=== PATIENT | female | born 1975 | race Caucasian/White ===

== ENCOUNTER 2021-03-11 16:59 | Inpatient (IN) | payer OTHER ==
[~2021-03-11] VITALS: Ht 167.6 cm; Wt 148.3 kg
[~2021-03-11 16:59] MED LIST: BACTRIM DS TAB1 EACH PO; BENTYL 20MG TAB20 MG PO; CEFUROXIME500 MG PO; COMBIVENT0.074 GM/I INH; IBU600 MG PO; IBUPROFEN600 MG PO; LODINE CAP 300300 MG PO; NORCO 5-325 TA1 EACH PO; OMNICEF 300 MG300 MG PO; PERCOCET 5/325 T1 EA PO; PHENERGAN 12.12.5 M1 PO; VIBRAMYCIN100 MG PO; ZITHROMAX500 MG PO; ZOFRAN ODT 4 MG4 MG PO
[2021-03-11 17:45] LABS: HEMOGLOBIN 16.2 gm/dl (12.3-15.3); RED BLOOD COUNT 5.24 M/UL (4.00-5.10); WHITE BLOOD COUNT 13.7 K/UL (4.5-11.0)
[2021-03-11 18:02] LABS: BUN/CREATININE RATIO 14 (0-10)
[2021-03-12 04:56] LABS: BUN/CREATININE RATIO 18 (0-10)
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
== END 2021-03-12 10:51 | disposition left against medical advice (07) | DRG 600 ==
LOC: ER1 16:59 → CDU 19:11 → MED SURG 4 23:58
PROVIDERS: Physician Assistant; ADMIT Internal Medicine
DX: N61.1 Abscess of the breast and nipple (principal); Z68.43 Body mass index [BMI] 50.0-59.9, adult; E11.9 Type 2 diabetes mellitus without complications; E78.5 Hyperlipidemia, unspecified; Z20.822 Contact with and (suspected) exposure to COVID-19; E66.01 Morbid (severe) obesity due to excess calories; I10 Essential (primary) hypertension; F17.210 Nicotine dependence, cigarettes, uncomplicated; Z79.4 Long term (current) use of insulin; Z90.49 Acquired absence of other specified parts of digestive tract
CPT/HCPCS: 36415; 80048; 80053; 82962; 83605; 85025; 87040; 96374; 99284; J1885; J2270; J2543; J3370; J7030; J7050; J7070; U0002

== ENCOUNTER 2022-04-12 07:51 | Emergency (ER) | payer OTHER ==
[2022-04-12 08:53] LABS: HEMOGLOBIN 16.6 gm/dl (12.3-15.3); RED BLOOD COUNT 5.47 M/UL (4.00-5.10); WHITE BLOOD COUNT 16.7 K/UL (4.5-11.0)
[2022-04-12 09:19] LABS: BUN/CREATININE RATIO 20 (0-10)
[2022-04-12] MEDS ORDERED: HYDROCODON-ACE1 EAC4 PO (13:05)
== END 2022-04-12 13:30 | disposition home or self-care (01) ==
LOC: ER1 07:51
PROVIDERS: Emergency Medicine
DX: S30.1XXA Contusion of abdominal wall, initial encounter (principal); S00.91XA Abrasion of unspecified part of head, initial encounter; S10.91XA Abrasion of unspecified part of neck, initial encounter; M54.50 Low back pain, unspecified; Z90.49 Acquired absence of other specified parts of digestive tract; E11.9 Type 2 diabetes mellitus without complications; I10 Essential (primary) hypertension; E66.01 Morbid (severe) obesity due to excess calories; F17.210 Nicotine dependence, cigarettes, uncomplicated; V43.53XA Car driver injured in collision with pick-up truck in traffic accident, initial encounter; Y92.410 Unspecified street and highway as the place of occurrence of the external cause; Z51.81 Encounter for therapeutic drug level monitoring
CPT/HCPCS: 70450; 71045; 71260; 72125; 72131; 72170; 73560; 80053; 82962; 83605; 84484; 84703; 85025; 85610; 85730; 86850; 86900; 86901; 90471; 90714; 93005; 96361; 96374; 96375; 96376; 99285; G0480; J1170; J2405; Q9967

== ENCOUNTER 2022-04-14 11:05 | Emergency (ER) | payer OTHER ==
[~2022-04-14 11:05] MED LIST changes: +HYDROCODON-ACE1 EAC4 PO
== END 2022-04-14 12:11 | disposition home or self-care (01) ==
LOC: ER1 11:05
DX: S00.05XA Superficial foreign body of scalp, initial encounter (principal); F17.210 Nicotine dependence, cigarettes, uncomplicated; E11.9 Type 2 diabetes mellitus without complications; W45.8XXA Other foreign body or object entering through skin, initial encounter
CPT/HCPCS: 99283